=== PATIENT | male | born 1995 | race Caucasian/White ===

== ENCOUNTER 2017-10-18 09:52 | Emergency (ER) | payer OTHER ==
[~2017-10-18] VITALS: Ht 175.3 cm; Wt 90.7 kg
[2017-10-18 09:58] VITALS: Ht 175.3 cm; Wt 90.7 kg
--- NOTE | 2017-10-18 10:05 | EMERGENCY ROOM VISIT NOTE ---
History Report prepared by [place]: Fidelina Mathew Under the Supervision of: Dr. Kalyan Pena D.O. First contact with patient: 09:56 Chief Complaint: OTHER COMPLAINT Stated Complaint: POSS. ASPIRATION/ EVAL History of Present Illness The patient is a 22 year old male who presents to the Emergency Room with complaints of sudden possible aspiration that began prior to arrival. The patient states that he was scheduled for wisdom teeth removal surgery this morning at an outpatient medical clinic in [place]. The patient notes that he felt fine before the surgery. The patient states that he remembers waking up in the ambulance and notes that the surgery was not completed. Per nurse, the patient vomited at the clinic after they pushed 150 of Propofol. Per EMS, he was also given 5 Versed, 25 Ketamine, and 6 Dexadron. The patient denies chest pain, shortness of breath, nausea, abdominal pain, vomiting since being at the clinic, and abnormal eating/drinking. Source of History: patient Onset: Today Position: other (lungs) Quality: other (possible aspiration) Timing: other (sudden) Associated Symptoms: No chest pain, No SOB, No nausea, No vomiting, No abdominal pain Note: The patient denies abnormal drinking/eating. Review of Systems See HPI for pertinent positives & negatives. A total of 10 systems reviewed and were otherwise negative. Past Medical & Surgical Medical Problems: (1) Hx of fracture of leg Family History No pertinent family history Social History Marital Status: single Housing Status: lives with family Occupation Status: employed Current/Historical Medications No Active Prescriptions or Reported Meds Allergies Coded Allergies: No Known Allergies (Unverified , 10/18/17) Physical Exam Vital Signs Date Time Temp Pulse Resp B/P (MAP) Pulse Ox O2 Delivery O2 Flow Rate FiO2 10/18/17 11:12 36.8 60 18 120/72 99 10/18/17 09:58 36.7 59 19 123/67 98 Room Air Physical Exam GENERAL: Talking in full sentences. Sitting up in bed, alert, well appearing, well nourished, no distress, non-toxic EYE EXAM: normal conjunctiva. OROPHARYNX: Bruising in posterior oropharynx with petechia. No exudate, lips, buccal mucosa, and tongue normal and mucous membranes are moist NECK: supple, no nuchal rigidity, no adenopathy, non-tender LUNGS: Clear to auscultation. Normal chest wall mechanics HEART: no murmurs, S1 normal and S2 normal ABDOMEN: abdomen soft, non-tender, normo-active bowel sounds, no masses, no rebound or guarding. BACK: Back is symmetrical on inspection and there is no deformity, no midline tenderness, no CVA tenderness. SKIN: no rashes and no bruising UPPER EXTREMITIES: upper extremities are grossly normal. LOWER EXTREMITIES: No pitting edema. Calves equal bilateral. NEURO EXAM: Normal sensorium, cranial nerves II-XII grossly intact, normal speech, no gross weakness of arms, no gross weakness of legs. Medical Decision & Procedures ER Provider Diagnostic Interpretation: Radiology results as stated below per my review and the radiologist's interpretation: CHEST 2 VIEWS ROUTINE CLINICAL HISTORY: ? aspiration dyspnea COMPARISON STUDY: No previous studies for comparison. FINDINGS: The bones soft tissues and hemidiaphragms are normal. The cardiomediastinal silhouette is normal. The lungs are clear. The pulmonary vasculature is normal. IMPRESSION: Negative chest. The above report was generated using voice recognition software. It may contain grammatical, syntax or spelling errors. Electronically signed by: Terell Jenkins M.D. 10/18/2017 10:36 AM Dictated Date/Time: 10/18/2017 10:36 AM Laboratory Results 10/18/17 10:11 Red Blood Count 4.99, Mean Corpuscular Volume 84.0, Mean Corpuscular Hemoglobin 29.5, Mean Corpuscular Hemoglobin Concent 35.1, Mean Platelet Volume 8.7, Neutrophils (%) (Auto) 69.5, Lymphocytes (%) (Auto) 20.8, Monocytes (%) (Auto) 5.4, Eosinophils (%) (Auto) 3.8, Basophils (%) (Auto) 0.3, Neutrophils # (Auto) 4.41, Lymphocytes # (Auto) 1.32, Monocytes # (Auto) 0.34, Eosinophils # (Auto) 0.24, Basophils # (Auto) 0.02 10/18/17 10:11 Test 10/18/17 10:11 White Blood Count 6.34 K/uL (4.8-10.8) Red Blood Count 4.99 M/uL (4.7-6.1) Hemoglobin 14.7 g/dL (14.0-18.0) Hematocrit 41.9 % (42-52) Mean Corpuscular Volume 84.0 fL (80-100) Mean Corpuscular Hemoglobin 29.5 pg (25-34) Mean Corpuscular Hemoglobin Concent 35.1 g/dl (32-36) Platelet Count 191 K/uL (130-400) Mean Platelet Volume 8.7 fL (7.4-10.4) Neutrophils (%) (Auto) 69.5 % Lymphocytes (%) (Auto) 20.8 % Monocytes (%) (Auto) 5.4 % Eosinophils (%) (Auto) 3.8 % Basophils (%) (Auto) 0.3 % Neutrophils # (Auto) 4.41 K/uL (1.4-6.5) Lymphocytes # (Auto) 1.32 K/uL (1.2-3.4) Monocytes # (Auto) 0.34 K/uL (0.11-0.59) Eosinophils # (Auto) 0.24 K/uL (0-0.5) Basophils # (Auto) 0.02 K/uL (0-0.2) RDW Standard Deviation 39.0 fL (36.4-46.3) RDW Coefficient of Variation 12.9 % (11.5-14.5) Immature Granulocyte % (Auto) 0.2 % Immature Granulocyte # (Auto) 0.01 K/uL (0.00-0.02) Anion Gap 6.0 mmol/L (3-11) Est Creatinine Clear Calc Drug Dose 134.9 ml/min Estimated GFR () 131.0 Estimated GFR (Non- 113.0 BUN/Creatinine Ratio 17.8 (10-20) Calcium Level 9.0 mg/dl (8.5-10.1) Laboratory results per my review ECG Per My Interpretation Indication: other (aspiration) Rate (beats per minute): 47 Rhythm: sinus bradycardia Findings: other (normal axis, no PVCs) Comparison ECG Date: no prior available ED Course ED COURSE: Vital signs were reviewed and showed bradycardia. The patients medical record was reviewed The above diagnostic studies were performed and reviewed. ED treatments and interventions as stated above. 0956: The patient was evaluated in room A2. A complete history and physical examination was performed. 1100: Upon reevaluation, the patient is resting comfortably. I discussed my findings with the patient and he understands and agrees with the treatment plan. Based on the patients age, coexisting illnesses, exam and lab findings the decision to treat as an outpatient was made. The patient remained stable while under my care. The patient appeared well at the time of discharge. Medical Decision Differential diagnoses includes but is not limited to pneumonia, bronchitis, COPD/Asthma exacerbation, pneumothorax, pulmonary embolism, congestive heart failure, acute coronary syndrome. Patient is a 22-year-old male that presents the ER after undergoing sedation to have wisdom teeth removed. Patient received 150 of propofol, 4 Versed and there is question if he aspirated. Patient has absolutely no complaints while in the ER. No chest pain or shortness of breath. Chest x-ray and EKG were unremarkable. CBC along with BMP was unremarkable. Patient was monitored for 2 hours. No complaints. He was discharged follow-up with PCP as an outpatient. No signs of aspiration at this time. We will not treat. Discussed with Pt concerning signs and symptoms to watch out for. Pt was instructed to follow up with their PCP and discussed with the patient their option to return to the ED at anytime for persistent or worsening symptoms. The appropriate anticipatory guidance and out-patient management, including indications for return to the emergency department, were explained at length to the patient and understood. Head Trauma GCS Score: 11 Medication Reconcilliation Current Medication List: was personally reviewed by me Blood Pressure Screening Patient's blood pressure: Normal blood pressure Blood pressure disposition: Did not require urgent referral Impression Primary Impression: Failed moderate sedation during procedure Scribe Attestation The scribe's documentation has been prepared under my direction and personally reviewed by me in its entirety. I confirm that the note above accurately reflects all work, treatment, procedures, and medical decision making performed by me. Departure Information Dispostion Home / Self-Care Prescriptions No Active Prescriptions or Reported Meds Forms HOME CARE DOCUMENTATION FORM, IMPORTANT VISIT INFORMATION, WORK / SCHOOL INSTRUCTIONS Patient Instructions My [facility] Additional Instructions Please follow up with your primary care doctor with in the next 24 hours. Any worsening of your symptoms, please return to the ED immediately. This includes any fevers greater than 100.4, worsening pain, chest pain, shortness breath, persistent nausea, vomiting, unable to eat or drink, or any other concerning signs or symptoms from your standpoint. Chest x-ray was completely clear. Please make sure that he follow-up with PCP if you start to have any shortness of breath. Problem Qualifiers Primary Impression: Failed moderate sedation during procedure Encounter type: initial encounter Qualified Codes: T88.52XA - Failed moderate sedation during procedure, initial encounter
[2017-10-18 10:20] LABS: BASO % 0.3 %; BASO ABS # 0.02 K/uL (0-0.2); EOS % 3.8 %; EOS ABS # 0.24 K/uL (0-0.5); HEMATOCRIT 41.9 % (42-52); HEMOGLOBIN 14.7 g/dL (14.0-18.0); IG# 0.01 K/uL (0.00-0.02); LYMPH % 20.8 %; LYMPH ABS # 1.32 K/uL (1.2-3.4); MEAN CORPUSCULAR HEMOGLOBIN 29.5 pg (25-34); MEAN CORPUSCULAR HGB CONC 35.1 g/dl (32-36); MEAN PLATELET VOLUME 8.7 fL (7.4-10.4); MONO % 5.4 %; MONO ABS # 0.34 K/uL (0.11-0.59); NEUT % 69.5 %; NEUT ABS # 4.41 K/uL (1.4-6.5); PLATELET COUNT 191 K/uL (130-400); RED CELL DISTRIBUTION WIDTH CV 12.9 % (11.5-14.5); WHITE BLOOD COUNT 6.34 K/uL (4.8-10.8)
[2017-10-18 10:37] LABS: CREATININE 0.94 mg/dl (0.60-1.40); POTASSIUM 4.4 mmol/L (3.5-5.1)
--- NOTE | 2017-10-18 10:37 | DIAGNOSTIC IMAGING REPORT ---
CHEST 2 VIEWS ROUTINE CLINICAL HISTORY: ? aspiration dyspnea COMPARISON STUDY: No previous studies for comparison. FINDINGS: The bones soft tissues and hemidiaphragms are normal. The cardiomediastinal silhouette is normal. The lungs are clear. The pulmonary vasculature is normal. IMPRESSION: Negative chest. The above report was generated using voice recognition software. It may contain grammatical, syntax or spelling errors. Electronically signed by: Terell Jenkins M.D. 10/18/2017 10:36 AM Dictated Date/Time: 10/18/2017 10:36 AM
[2017-10-18 11:12] VITALS: BP 120/72; PULSE 60; TEMP 36.8; O2SAT 99
== END 2017-10-18 11:10 | disposition home or self-care (01) ==
LOC: EDBD 09:52 → C.EDA 09:54
DX: T88.52XA Failed moderate sedation during procedure, initial encounter (principal); T41.295A Adverse effect of other general anesthetics, initial encounter; X58.XXXA Exposure to other specified factors, initial encounter; Y84.8 Other medical procedures as the cause of abnormal reaction of the patient, or of later complication, without mention of misadventure at the time of the procedure